=== PATIENT | male | born 1980 | race Caucasian/White ===

== ENCOUNTER 2020-08-03 23:41 | Emergency (ER) | payer OTHER ==
[2020-08-04] MEDS ORDERED: Ketorolac 30 MG/ML SDV IM ONE (00:05)
--- NOTE | 2020-08-04 00:10 | EDM.PDOC ---
ED HPI GENERAL MEDICAL PROBLEM - General Chief Complaint: Upper Extremity Injury/Pain Stated Complaint: finger pain Time Seen by Provider: 08/03/20 23:50 Source of Information: Reports: Patient History Limitations: Reports: No Limitations - History of Present Illness INITIAL COMMENTS - FREE TEXT/NARRATIVE: Naun is a 40 year old male who presents to ER with complaints of left index finger pain. Had stitches placed to finger on the 8th after cutting it on a table saw. Has been doing well since that time. Has not noted any drainage or redness, has been keeping it clean and covered. Was sleeping tonight when he awoke acutely with pain to his finger. States his finger was throbbing and then started radiating up his arm. Does not recall any new trauma to the area. Has been using his hand without restraint. Denies any wrist, shoulder or elbow injury. No chest pain. No shortness of breath. States all started in the finger and is working its way up his arm. Is due to have the stitches out on Thursday. Has not iced the area or taken any meds for discomfort prior to coming to the ER Onset: Today, Sudden Duration: Minutes:, Getting Worse Location: Reports: Upper Extremity, Left Quality: Reports: Throbbing Severity: Moderate Improves with: Reports: None Worsens with: Reports: None Left Finger-Index Pain Score (Numeric/FACES): 8 - Related Data Allergies Allergy/AdvReac Type Severity Reaction Status Date / Time hydrocodone Allergy Other Verified 07/23/20 14:57 Home Meds: Home Meds . [No Known Home Meds] 07/23/20 [History] Past Medical History - Past Health History Medical/Surgical History: Denies Medical/Surgical History Social & Family History - Family History Family Medical History: Unobtainable - Caffeine Use Caffeine Use: Reports: None Review of Systems - Review of Systems Review Of Systems: Comprehensive ROS is negative, except as noted in HPI. ED EXAM, GENERAL - Physical Exam Exam: See Below Exam Limited By: No Limitations General Appearance: Alert, WD/WN, No Apparent Distress Respiratory/Chest: No Respiratory Distress, Lungs Clear, Normal Breath Sounds Cardiovascular: Regular Rate, Rhythm Extremities: Normal Range of Motion, Other (Intact sutures to distal tip of finger. No redness, warmth or swelling. Did remove the proximal suture by the nailbed as states "that one is causing me the most discomfort"). No: Increased Warmth Neurological: Alert, Oriented Skin Exam: Warm, Dry, Wound/Incision Course - Vital Signs Last Recorded V/S: Last Vital Signs Temp 97.7 F 08/03/20 23:45 Pulse 98 08/03/20 23:45 Resp 12 08/03/20 23:45 BP 148/81 H 08/03/20 23:45 Pulse Ox 98 08/03/20 23:45 - Orders/Labs/Meds Orders: Active Orders 24 hr Category Date Time Status Ketorolac [Toradol] Med 08/04/20 00:05 Once 30 mg IM ONETIME ONE - Re-Assessments/Exams Free Text/Narrative Re-Assessment/Exam: 08/04/20 00:15 Unable to explain the pain he is experiencing. Reassured no signs of infection. Sutures removed to see if would relieve discomfort as have been in for 11 days now. Toradol given for discomfort. Ice pack placed. Departure - Departure Time of Disposition: 00:17 Disposition: Home, Self-Care 01 Condition: Good Clinical Impression: Finger pain, left - Discharge Information *PRESCRIPTION DRUG MONITORING PROGRAM REVIEWED*: No *COPY OF PRESCRIPTION DRUG MONITORING REPORT IN PATIENT HAYDEE: No Additional Instructions: 1. Ice finger to help relieve discomfort 2. Tylenol or ibuprofen for pain 3. Monitor wound for any changes 4. Follow up on Thursday as needed for ongoing pain Sepsis Event Note (ED) - Evaluation Sepsis Screening Result: No Definite Risk - Focused Exam Vital Signs: Vital Signs Temp Pulse Resp BP Pulse Ox 08/03/20 23:45 97.7 F 98 12 148/81 H 98 - My Orders Last 24 Hours: My Active Orders 08/04/20 00:05 Ketorolac [Toradol] 30 mg IM ONETIME ONE - Assessment/Plan Last 24 Hours: My Active Orders 08/04/20 00:05 Ketorolac [Toradol] 30 mg IM ONETIME ONE
== END 2020-08-04 00:48 | disposition home or self-care (01) ==
LOC: VM.ED 23:41
DX: M79.645 Pain in left finger(s) (principal); Z88.5 Allergy status to narcotic agent
CPT/HCPCS: 96372; 99282; 99283; J1885